=== PATIENT | female | born 1985 | race Caucasian/White ===

== ENCOUNTER → 2017-09-08 15:35 | Outpatient (REF) | payer MEDICAID, SELFPAY ==
[2017-09-08 18:45] LABS: Basophils % 0.5 % (0.1-2.0); Eosinophils # 0.1 K/mm3 (0.0-0.4); Eosinophils % 1.1 % (0.1-12.0); Hematocrit 42.2 % (37.0-47.0); Hemoglobin 13.6 g/dL (12.2-16.2); Lymphocytes # 2.6 K/mm3 (0.7-4.5); Lymphocytes % 40.1 K/mm3 (10-50); Mean Corpuscular HGB Conc 32.3 g/dL (31.8-35.4); Mean Corpuscular Hemoglobin 29.5 pg (27.0-31.2); Mean Corpuscular Volume 91.4 fl (81-99); Mean Platelet Volume 7.8 fl (7.4-10.4); Monocytes # 0.3 K/mm3 (0.1-1.0); Monocytes % 4.4 % (1.7-9.3); Neutrophils # 3.5 K/mm3 (1.8-7.8); Neutrophils % 53.8 % (37.0-80.0); Platelet Count 317 K/mm3 (142-424); Red Blood Count 4.62 M/mm3 (4.20-5.40); Red Cell Distribution Width 12.1 % (11.5-17.5); White Blood Count 6.5 K/mm3 (4.8-10.8)
[2017-09-08 19:27] LABS: Alanine Aminotransferase 20 U/L (12-78); Albumin Level 4.4 gm/dL (3.4-5.0); Albumin/Globulin Ratio 1.3 (1.1-1.8); Alkaline Phosphatase 59 U/L (46-116); Anion Gap 14.8 mEq/L (5-15); Aspartate Amino Transferase 15 U/L (15-37); Bilirubin,Total 0.3 mg/dL (0.2-1.0); Blood Urea Nitrogen 9 mg/dL (7-18); Calcium 9.2 mg/dL (8.5-10.1); Carbon Dioxide 26 mmol/L (21.0-32.0); Chloride 103 mmol/L (98-107); Chol/HDL Ratio 3.6 (1-3.5); Cholesterol 212 mg/dL (140-200); Estimated Glomerular Filt Rate 85 ml/min (>60); Free T4 (Free Thyroxine) 1.07 ng/dl (0.76-1.46); GFR (African American) 103 ML/MIN (>60); Globulin 3.3 gm/dl (1.3-3.2); Glucose 96 mg/dL (74-106); HDL Cholesterol 59 mg/dL (29-89); LDL Cholesterol 138 mg/dL (0-130); Potassium 3.8 mmoL/L (3.5-5.1); Sodium 140 mmol/L (136-145); Thyroid Stimulating Hormone 2.68 uIU/ml (0.358-3.740); Total Protein,Serum 7.7 gm/dL (6.4-8.2); Triglycerides 75 mg/dL (30-200); VLDL Cholesterol 15 mg/dL (0-40)
[2017-09-08 19:31] LABS: Erythrocyte Sedimentation Rate 7 mm/hr (0-20)
[2017-09-08 20:02] LABS: Hemoglobin A1C 5.1 % (0.0-7.0)
[2017-09-10 18:29] LABS: RA Latex Turbid. <10.0 IU/mL (0.0-13.9); Vitamin D 25 Hydroxy 17.9 ng/mL (30.0-100.0)
[2017-09-12 11:14] LABS: Anti-Jo-1 <0.2 AI (0.0-0.9); Anti-Smith Antibody <0.2 AI (0.0-0.9); Antichromatin Antibodies 0.2 AI (0.0-0.9); Antiscleroderma-70 Antibodies <0.2 AI (0.0-0.9); RNP Antibodies <0.2 AI (0.0-0.9); Sjogren's Anti-SS-A <0.2 AI (0.0-0.9); Sjogren's Anti-SS-B <0.2 AI (0.0-0.9)
[2017-09-12 18:08] LABS: Anti-Cyclic Citrullinated Pept 4 units (0-19)
[2017-09-12 18:09] LABS: Anti-Centromere B Antibodies <0.2 AI (0.0-0.9); Anti-DNA (DS) Ab Qn <1 IU/mL (0-9)
== END ==
LOC: LAB 15:35
PROVIDERS: Visit Provider Nurse Practitioner Family
DX: M79.1 Myalgia (principal); R53.83 Other fatigue; Z79.899 Other long term (current) drug therapy
CPT/HCPCS: 80053; 80061; 82652; 83036; 84439; 84443; 85025; 85651; 86038; 86431

== ENCOUNTER 2017-10-25 13:30 | Outpatient (RCR) | payer MEDICAID, SELFPAY ==
--- NOTE | 2017-09-15 09:09 | HMH.PTOPEV ---
Rehab Outpatient Evaluation Rehab OP Evaluation Start: 09/15/17 08:42 Freq: Status: Active Protocol: Document 09/15/17 08:44 PHORNE (Rec: 09/15/17 09:09 PHORNE [id number]) Electronically Signed By Benson Cortes, PT 09/15/17 08:44 Outpatient Therapy Subjective History Subjective History Pt presents with c/o pain in the right shld area intermittently moving through the right UE to the forearm distally x ~ 8 yrs with insidious onset of symptoms. Pt states, I was watching a video on my computer and I just sat wrong I guess and it has hurt ever since. Pt reports no c/o numbness or tingling, but does have frequent headaches. She reports hx of migraine JOHNSON and familial hx of fibromyalgia. Pt also presents with baseline hyperflexibility in all joints with obvious ligamentous laxity. Chief Complaint Pain Symptom Type Ache Sharp Dull Symptoms Relieved By Rest/Positioning Symptoms Aggravated By Lifting Prior Functional Limitations None Current Functional Limitations Reaching Lifting Sleeping Symptom Description Intermittent Level of pain today (0-10) 3 Pain scale - at its worst (0-10) 7 Cervical Eval Flexibility Deficits Upper Trapezius Muscle Length (R) Mild Tightness Levaetor Scapulae Muscle Length (R) Mild Tightness Passive Joint Mobility Cervical PIVM WNL: R OA L OA R AA L AA R C2/3 L C2/3 R C3/4 L C3/4 R C4/5 L C4/5 R C5/6 L C5/6 R C6/7 L C6/7 R C7/T1 L C7/T1 MMT Bilateral Deltoid (C5) 5 Normal Biceps Brachii Strength Grade
== END 2017-10-25 13:31 | disposition home or self-care (01) ==
LOC: PT 13:30
PROVIDERS: PCP Nurse Practitioner Family; Visit Provider Nurse Practitioner Family
DX: M79.1 Myalgia (principal)
CPT/HCPCS: 97010; 97014; 97035; 97110; 97140; G0283

== ENCOUNTER → 2019-04-06 14:54 | Outpatient (CLI) | payer MEDICAID, SELFPAY ==
--- NOTE | 2019-04-06 14:56 | CT_ITS ---
PROCEDURE: CT SINUS WO CON CLINICAL HISTORY: Sinusitis Frequent sinus infections, frontal sinus pain, headache COMPARISON: No exams were available for comparison TECHNIQUE: Axial images obtained with sagittal and coronal reformats. All CT scans at the facility use one or more dose reduction, viz: automated exposure control, ma/kV adjustment per patient size (including targeted exams where dose is matched to indication, i.e. head), or iterative reconstruction technique. FINDINGS: No significant mucosal thickening or sinus air-fluid level. There is moderate leftward nasal septal deviation anteriorly causing narrowing of the left nasal canal. There are scattered small nodes in the neck. The visualized parotid glands have an unremarkable appearance. The orbits appear unremarkable. Unremarkable TMJs.. No mastoid effusion IMPRESSION: Leftward nasal septal deviation otherwise negative CT sinuses Dictated by: Jovon Mcdonald MD 04/06/2019 16:20 Signed by: <Electronically signed by Jovon Mcdonald MD in [facility]> 04/06/2019 16:20
== END ==
PROVIDERS: PCP Nurse Practitioner Family; Visit Provider Otolaryngology
DX: J32.9 Chronic sinusitis, unspecified (principal)
CPT/HCPCS: 70486

== ENCOUNTER → 2019-08-31 12:17 | Outpatient (CLI) | payer MEDICAID, SELFPAY ==
--- NOTE | 2019-08-31 12:19 | CA_ITS ---
APPROVED REPORT EXAM: Comprehensive 2D, Doppler, and color-flow Echocardiogram Bulk Fluids Handler: Nita Poe CRT Ht: 5 ft 4 in Wt: 174lbs BSA: 1.84 BP: 158/103 mmHg Indications: Chest Pain, Arrhythmia, Hypertension/HDD 2D Dimensions LVOT 2.20 cm (M/F) 1.5-2.5 M-Mode Dimensions RVDd 3.50 cm (0.9-2.6) LVDd 4.64 cm (3.5-5.7) LVDs 3.43 cm (3.5-5.7) IVSd 0.82 cm (0.6-1.1) PWd 0.68 cm (0.6-1.1) EF (Teich) 51.20% FS 26.10% EDV (Teich) 99.30 mL ESV (Teich) 48.50 mL LV Diastology E/A Ratio 0.82 Mitral Valve MV A Velocity 63.00 (40-130 cm/s) Left Ventricle Left atrium is normal size, left ventricle is normal size, left ventricle wall thickness is upper limit of the normal, there is preserved left ventricular systolic function, visually estimated ejection fraction 55% with no regional wall motion abnormality, grade 1 diastolic dysfunction seen without tissue Doppler evidence of raise left atrial pressure. Right Ventricle Right atrium and right ventricular normal size and contractility. Aortic Valve Aortic valve is minimally thickened and fibrosed, there is no aortic stenosis aortic insufficiency. Mitral Valve Mitral valve is grossly normal, there is mild mitral regurgitation. Tricuspid Valve Tricuspid valve is grossly normal, there is mild tricuspid regurgitation. Tricuspid addition to close is inadequate for calculation of the right ventricular systolic pressure. Pulmonic Valve Pulmonic valve is poorly visualized. Great Vessels Aortic root is normal size. Pericardium No significant pericardial effusion noted. Conclusion 1. Normal left ventricular size, preserved left ventricular systolic function, visually estimated ejection fraction 55% with no regional wall motion abnormality. Grade 1 diastolic dysfunction seen without tissue Doppler evidence of raise left atrial pressure. 2. Mild mitral and tricuspid regurgitation. 3. No significant pericardial effusion noted. Electronically signed by : Miguel A Villaseñor, 08/31/2019 19:54:01
[2019-08-31 14:06] LABS: Basophils % 0.5 % (0.1-2.0); Eosinophils # 0.1 K/mm3 (0.0-0.4); Hematocrit 41.9 % (37.0-47.0); Hemoglobin 13.5 g/dL (12.2-16.2); Lymphocytes # 2.6 K/mm3 (0.7-4.5); Lymphocytes % 28.9 % (10-50); Mean Corpuscular HGB Conc 32.3 g/dL (31.8-35.4); Mean Corpuscular Hemoglobin 29.1 pg (27.0-31.2); Mean Corpuscular Volume 90.2 fl (81-99); Mean Platelet Volume 7.6 fl (7.4-10.4); Monocytes # 0.3 K/mm3 (0.1-1.0); Monocytes % 3.5 % (1.7-9.3); Neutrophils # 5.9 K/mm3 (1.8-7.8); Neutrophils % 66.1 % (37.0-80.0); Platelet Count 447 K/mm3 (142-424); Red Blood Count 4.65 M/mm3 (4.20-5.40); Red Cell Distribution Width 12.5 % (11.5-17.5); White Blood Count 8.9 K/mm3 (4.8-10.8)
[2019-08-31 15:44] LABS: Alanine Aminotransferase 15 U/L (12-78); Albumin Level 3.8 gm/dL (3.4-5.0); Albumin/Globulin Ratio 1.2 (1.1-1.8); Alkaline Phosphatase 86 U/L (46-116); Anion Gap 13.1 mEq/L (5-15); Aspartate Amino Transferase 11 U/L (15-37); Bilirubin,Total 0.3 mg/dL (0.2-1.0); Blood Urea Nitrogen 8 mg/dL (7-18); CKMB Relative Index 0.8 U/L (0-4.0); Calcium 9.5 mg/dL (8.5-10.1); Carbon Dioxide 26 mmol/L (21.0-32.0); Chloride 101 mmol/L (98-107); Chol/HDL Ratio 4.5 (1-3.5); Cholesterol 232 mg/dL (140-200); Creatine Kinase 63 U/L (26-192); Creatine Kinase MB < 0.5 ng/ml (0.0-3.6); Estimated Glomerular Filt Rate 84 ml/min (>60); GFR (African American) 101 ML/MIN (>60); Globulin 3.3 gm/dl (1.3-3.2); Glucose 92 mg/dL (74-106); HDL Cholesterol 52 mg/dL (29-89); LDL Cholesterol 146 mg/dL (0-130); Potassium 4.1 mmoL/L (3.5-5.1); Sodium 136 mmol/L (136-145); T4 (Thyroxine) 12.3 ug/dl (4.7-13.3); Thyroid Stimulating Hormone 3.31 uIU/ml (0.358-3.740); Total Protein,Serum 7.1 gm/dL (6.4-8.2); Triglycerides 170 mg/dL (30-200); Troponin I < 0.02 ng/ml (0.00-0.06); VLDL Cholesterol 34 mg/dL (0-40)
[2019-09-01 11:06] LABS: Vitamin D 25 Hydroxy 34.2 ng/mL (30.0-100.0)
== END ==
PROVIDERS: PCP Nurse Practitioner Family; Visit Provider Physician Assistant
DX: F32.9 Major depressive disorder, single episode, unspecified (principal); F41.9 Anxiety disorder, unspecified; R00.0 Tachycardia, unspecified; R07.9 Chest pain, unspecified; R53.83 Other fatigue; R51 Headache
CPT/HCPCS: 36415; 80053; 80061; 82550; 82553; 82652; 84436; 84443; 84484; 85025; 93306

== ENCOUNTER → 2019-09-07 11:29 | Outpatient (CLI) | payer MEDICAID, SELFPAY ==
[2019-09-07 13:08] LABS: Anion Gap 11.5 mEq/L (5-15); Blood Urea Nitrogen 8 mg/dL (7-18); Calcium 9.1 mg/dL (8.5-10.1); Carbon Dioxide 28 mmol/L (21.0-32.0); Chloride 92 mmol/L (98-107); Creatinine,Serum 0.85 mg/dL (0.55-1.02); Estimated Glomerular Filt Rate 78 ml/min (>60); GFR (African American) 94 ML/MIN (>60); Glucose 96 mg/dL (74-106); Potassium 3.5 mmoL/L (3.5-5.1); Sodium 128 mmol/L (136-145)
== END ==
PROVIDERS: Visit Provider Physician Assistant
DX: R07.9 Chest pain, unspecified (principal); R00.0 Tachycardia, unspecified; F32.9 Major depressive disorder, single episode, unspecified; F41.9 Anxiety disorder, unspecified; R53.83 Other fatigue
CPT/HCPCS: 36415; 80048

== ENCOUNTER → 2019-09-19 11:49 | Outpatient (CLI) | payer MEDICAID, SELFPAY ==
[2019-09-19 14:02] LABS: Anion Gap 13.3 mEq/L (5-15); Blood Urea Nitrogen 8 mg/dL (7-18); Calcium 9.5 mg/dL (8.5-10.1); Carbon Dioxide 27 mmol/L (21.0-32.0); Chloride 102 mmol/L (98-107); Creatinine,Serum 0.82 mg/dL (0.55-1.02); Estimated Glomerular Filt Rate 81 ml/min (>60); GFR (African American) 98 ML/MIN (>60); Glucose 91 mg/dL (74-106); Potassium 4.3 mmoL/L (3.5-5.1); Sodium 138 mmol/L (136-145)
== END ==
PROVIDERS: Visit Provider Physician Assistant
DX: E87.1 Hypo-osmolality and hyponatremia (principal)
CPT/HCPCS: 36415; 80048

== ENCOUNTER 2020-12-22 17:17 | Emergency (ER) | payer MEDICAID, SELFPAY ==
[2020-12-22 17:53] VITALS: BP 138/90; PULSE 89; RESP 19; TEMP 36.9; O2SAT 97; BMI 31.7
--- NOTE | 2020-12-22 17:59 | XR_ITS ---
PROCEDURE INFORMATION: Exam: XR Left Foot Exam date and time: 12/22/2020 5:59 PM Age: 35 years old Clinical indication: Pain; Toes; Left; Additional info: Injured 5th toe TECHNIQUE: Imaging protocol: XR Left foot. Views: 3 or more views. COMPARISON: No relevant prior studies available. FINDINGS: Bones/joints: Comminuted fracture extending throughout the diaphysis and distal metaphysis of the little toe proximal phalanx. Normal anatomic alignment. No other acutely displaced fractures are identified. There is no evidence of dislocation. No aggressive osseous lesions. Soft tissues: Soft tissue swelling at the little toe. IMPRESSION: 1. Comminuted fracture of the little toe proximal phalanx, as detailed above. 2. Soft tissue swelling at the little toe.
--- NOTE | 2020-12-22 18:09 | HMH.EDUTC ---
[facility] [place] Clinical Impression: Fracture Disposition: Home, Self-Care Condition on Discharge: Good Instructions: DI for Toe Fracture Additional Instructions: ice rest elevated follow up with dr murguia call tomorrow for appointment tylenol or motrin as needed if worsen or no improvement return Referrals: Vaughn Sunshine APRN [Primary Care Provider] - Ayesha Murguia DPM [Staff Physician] - Time of Disposition: 18:34 Medical Decision Making - Malick Inquiry Pt receiving controlled substance: No Vital Signs: 12/22/20 17:53 Temperature 98.4 F Temperature Source Oral Pulse Rate [Right Brachial] 89 Respiratory Rate 19 Blood Pressure [Right Arm] 138/90 Blood Pressure Mean [Right Arm] 106 Blood Pressure Source [Right Arm] Automatic Cuff Blood Pressure Position [Right Arm] Sitting 02 Sat by Pulse Oximetry 97 Orders (Tests/Meds): ORDERS Category Date Time Status XR foot LT min 3V Stat Exams 12/22/20 17:59 Taken [facility] [place] - General Chief complaint: Urgent [facility] Stated complaint: AO trip 1400 injured L pinky toe Time Seen by Provider: 12/22/20 18:09 Mode of Arrival: Family Vehicle Description of Symptoms (Recalled from Triage Doc. by RN): PT STATES THAT SHE TRIPPED OVER A SPACE HEATER AT HOME AND INJURED 5TH TOE ON HRT LEFT FOOT AT 1500 TODAY HEENT Symptoms (Recalled from RN notes): No Resp Symptoms (Recalled from RN notes): No Skin Symptoms (Recalled from RN notes): No MS Symptoms (Recalled from RN notes): Yes Functional Status (Recalled from RN notes): WNL - History of Present Illness Provider Complaint: 35 yr old female presents for left toe pain. pt states she tripped over a space heater stumping her toe at 3 pm today and since then having pain. - Related Data Previous Rx's Medication Instructions Recorded fluticasone propionate 50 1 spray INTRANASAL DAILY #9.9 g 04/12/19 mcg/actuation nasal spray,suspension loratadine 10 mg tablet 10 mg PO DAILY #30 tab 04/12/19 lisinopril 10 mg tablet 10 mg PO DAILY #90 tab 01/15/20 norgestrel 0.3 mg-ethinyl See Rx Instructions .ROUTE 10/27/20 estradiol 30 mcg tablet .COMPLEX #28 tab meclizine 25 mg tablet 25 mg PO BID PRN 3 Days #6 tab 12/09/20 prednisone 10 mg tablet 10 mg PO BID #6 tab 12/22/20 prednisone 20 mg tablet 20 mg PO BID 3 Days #6 tab 12/22/20 Allergies Allergy/AdvReac Type Severity Reaction Status Date / Time penicillin G Allergy Hives Verified 12/09/20 13:28 - Worker's Comp Is this a Worker's Comp case?: No [facility] History - Hepatitis A Screen Drug use history?: No High risk sexual behaviors?: No History of sexually transmitted infection?: No Currently employed?: No Childcare worker?: No Do you have indoor plumbing?: No Do you have electricity?: No Attestation statement:: This patient has been screened for Hepatitis A risk factors. I have reviewed the patient's past medical history: Yes Medical History: Reports:: Anxiety, Depression, Hypertension, Migraine Other Medical History: Reports: Fibromyalgia, Sinus Problems, Other Comment: Gastritis in High School, Chronic Rhinoitis Other Surgeries: Yes: No Previous Surgery, Other Amputation: No Fractures: No Comment: Endostomy, S[place] teeth removed - Social History Smoking Status: Never smoker Alcohol Intake: never Alcohol Intake Frequency:: holidays/special occasions only Substance Use Type: denies use Occupational Status: employed Housing: house Household Members: spouse - Psychiatric History Pschychiatric History:: Reports:: Anxiety, Depression Family Hx:: Thyroid Disorder, Hypertension, Coronary Artery Disease Comment: Mother-Pacemaker@40s ROS Obtained: Yes Systems reviewed as appropriate & no additional complaints - Constitutional Constitutional: Reports system reviewed and no additional complaints, except as docu, Denies fever(s) - Eyes Eyes: Reports system reviewed and no additional complaints, except as docu, Denies blurry vision -
[2020-12-22 18:36] VITALS: BP 138/90; PULSE 89; RESP 19; TEMP 36.9; O2SAT 97
== END 2020-12-22 18:39 | disposition home or self-care (01) ==
PROVIDERS: Emergency Provider Nurse Practitioner Family; PCP Nurse Practitioner Family
DX: S92.515A Nondisplaced fracture of proximal phalanx of left lesser toe(s), initial encounter for closed fracture (principal); W01.0XXA Fall on same level from slipping, tripping and stumbling without subsequent striking against object, initial encounter; Y92.019 Unspecified place in single-family (private) house as the place of occurrence of the external cause; F41.8 Other specified anxiety disorders; I10 Essential (primary) hypertension; M79.7 Fibromyalgia
CPT/HCPCS: 73630; 99202; G0463

== ENCOUNTER → 2021-01-19 14:26 | Outpatient (CLI) | payer MEDICAID, SELFPAY ==
--- NOTE | 2021-01-19 14:31 | XR_ITS ---
PROCEDURE: XR FOOT WT BEARING LT 3V CLINICAL INDICATION: fracture follow up COMPARISON: CR XR FOOT LT MIN 3V from 12/22/2020 FINDINGS: No change in the nondisplaced oblique fracture involving the midshaft the proximal phalanx of the 5th toe. No other significant anomalies apparent. Other findings:None. IMPRESSION: No change nondisplaced oblique fracture midshaft proximal phalanx 5th toe Dictated by: Jovon Mcdonald MD 01/19/2021 15:01 Jovon Mcdonald MD in [facility] 01/19/2021 15:01
== END ==
PROVIDERS: PCP Emergency Medicine; Visit Provider Nurse Practitioner
DX: T14.8XXA Other injury of unspecified body region, initial encounter (principal)
CPT/HCPCS: 73630

== ENCOUNTER 2022-03-07 04:21 | Emergency (ER) | payer MEDICAID, SELFPAY ==
[2022-03-07] VITALS (8 sets, daily range): BP systolic 105–129; BP diastolic 51–77; PULSE 68–113; RESP 18; TEMP 37.3; O2SAT 96–99; BMI 34.4
[2022-03-07 04:46] LABS: Microscopic, Urine URINE MICROSCOPIC (MICROSCOPIC)
[2022-03-07 04:53] LABS: Appearance,Urine SL CLOUDY (Clear); Bilirubin,Urine Negative (Negative); Blood, Urine 2+ (Negative); Color,Urine YELLOW (Yellow); Glucose,Urine (UA) Negative (Negative); Ketones,Urine Negative (Negative); Leukocyte Esterase,Urine TRACE (Negative); Nitrate,Urine Negative (Negative); Protein,Urine Negative (Negative); Urobilinogen,Urine 0.2 EU/dl (0.2)
[2022-03-07 04:57] LABS: Amorphous Sediment,Urine 2+ /lpf; Bacteria,Urine Trace /lpf; Squamous Epithelial Cell,Urine Occasional #/hpf (0-5); Urine Pregnancy, HCG Qual. Negative (Negative); WBC,Urine Occasional #/hpf (0-3)
--- NOTE | 2022-03-07 04:59 | XR_ITS ---
PROCEDURE INFORMATION: Exam: XR Chest Exam date and time: 03/07/2022 5:10 AM Age: 36 years old Clinical indication: Shortness of breath TECHNIQUE: Imaging protocol: Radiologic exam of the chest. Views: 2 views. COMPARISON: No relevant prior studies available. FINDINGS: Lungs: Linear atelectasis versus scar right lung base. Remainder of the lungs are clear. Pleural spaces: Unremarkable. No pleural effusion. No pneumothorax. Heart/Mediastinum: Unremarkable. No cardiomegaly. Diaphragm: There is nonspecific elevation of the right hemidiaphragm. Bones/joints: There is a mild scoliosis. IMPRESSION: Linear atelectasis versus scar right lung base.
[2022-03-07 05:14] LABS: Coronavirus 19, PCR Not Detected (NotDetected); Influenza A, PCR Not Detected (NotDetected); Influenza B, PCR Not Detected (NotDetected)
[2022-03-07 05:26] LABS: Basophils # 0.1 K/mm3 (0-0.2); Basophils % 0.5 % (0.1-2.0); Eosinophils # 0.3 K/mm3 (0.0-0.4); Eosinophils % 1.4 % (0.1-12.0); Hematocrit 42.3 % (37.0-47.0); Hemoglobin 14.2 g/dL (12.2-16.2); Lymphocytes # 8.8 K/mm3 (0.7-4.5); Lymphocytes % 42.9 % (10-50); Mean Corpuscular HGB Conc 33.5 g/dL (31.8-35.4); Mean Corpuscular Hemoglobin 28.9 pg (27.0-31.2); Mean Corpuscular Volume 86.2 fl (81-99); Mean Platelet Volume 6.6 fl (7.4-10.4); Monocytes # 0.9 K/mm3 (0.1-1.0); Monocytes % 4.2 % (1.7-9.3); Neutrophils # 10.4 K/mm3 (1.8-7.8); Platelet Count 474 K/mm3 (142-424); Red Blood Count 4.91 M/mm3 (4.20-5.40); Red Cell Distribution Width 13.1 % (11.5-17.5)
[2022-03-07 05:33] LABS: White Blood Count 20.4 K/mm3 (4.8-10.8)
[2022-03-07 05:34] LABS: MANUAL DIFFERENTIAL MANUAL DIFFERENTIAL (MANUAL DIFF)
--- NOTE | 2022-03-07 05:34 | HMH.EDWEAK ---
ED Disposition Clinical Impression: Anxiety Leukocytosis (leucocytosis) Qualifiers: Leukocytosis type: unspecified Qualified Code(s): D72.829 - Elevated white blood cell count, unspecified Disposition: Home, Self-Care Condition on Discharge: Good Instructions: DI for Anxiety -- Adult Additional Instructions: use meds and see pcp for follow up Referrals: Lan Ortiz MD [Primary Care Provider] - - Critical Care Critical Care Time: No Attestation: On 03/07/22, the high probability of a clinically significant, sudden or life threatening deterioration of the following system(s) required my full and direct attention, intervention and personal management. The time I documented below is in addition to time spent performing reported procedures but includes the following listed in this critical care notation. Medical Decision Making - Medical Records Medical records reviewed: Yes: I reviewed the patient's medical records. - Malick Inquiry Pt receiving controlled substance: No Vital Signs: 03/07/22 04:45 03/07/22 05:22 03/07/22 05:30 Temperature 99.2 F Temperature Source Oral Pulse Rate 72 Pulse Rate [Right Brachial] 113 H Respiratory Rate 18 Blood Pressure 105/71 L 112/75 Blood Pressure [Right Arm] 129/51 L Blood Pressure Mean 82 89 Blood Pressure Mean [Right Arm] 77 Blood Pressure Source [Right Arm] Automatic Cuff Blood Pressure Position [Right Arm] Sitting 02 Sat by Pulse Oximetry 96 Oxygen Delivery Method Room Air 03/07/22 06:00 Temperature Temperature Source Pulse Rate 68 Pulse Rate [Right Brachial] Respiratory Rate Blood Pressure 121/75 Blood Pressure [Right Arm] Blood Pressure Mean 86 Blood Pressure Mean [Right Arm] Blood Pressure Source [Right Arm] Blood Pressure Position [Right Arm] 02 Sat by Pulse Oximetry 99 Oxygen Delivery Method - Lab Data Lab results reviewed: Yes: I reviewed the patient's lab results. Lab Results 03/07/22 04:39: Urine HCG, Qual Negative 03/07/22 04:39: Urine Color Yellow, Urine Appearance Sl cloudy, Urine pH 6.0, Ur Specific [place] 1.020, Urine Protein Negative, Urine Glucose (UA) Negative, Urine Ketones Negative, Urine Blood 2+, Urine Nitrate Negative, Urine Bilirubin Negative, Urine Urobilinogen 0.2, Ur Leukocyte Esterase Trace, Urine RBC 5-10, Urine WBC Occasional, Ur Squamous Epith Cells Occasional, Amorphous Sediment 2+, Urine Bacteria Trace 03/07/22 04:59: SARS-CoV-2 (PCR) Not detected, Influenza A Untype (PCR) Not detected, Influenza Type B (PCR) Not detected 03/07/22 05:05: Procalcitonin 0.033 03/07/22 05:10: WBC 20.4 H*, RBC 4.91, Hgb 14.2, Hct 42.3, MCV 86.2, MCH 28.9, MCHC 33.5, RDW 13.1, Plt Count 474 H, MPV 6.6 L, Neut % (Auto) 51.0, Lymph % (Auto) 42.9, [place] % (Auto) 4.2, Eos % (Auto) 1.4, Baso % (Auto) 0.5, Neut # (Auto) 10.4 H, Lymph # (Auto) 8.8 H, [place] # (Auto) 0.9, Eos # (Auto) 0.3, Baso # (Auto) 0.1, Total Counted 100, Neutrophils % (Manual) 59, Band Neutrophils % 1.0, Lymphocytes % (Manual) 40, Platelet Estimate Normal, RBC Morphology Normal, ESR 7 03/07/22 05:10: Sodium 131 L, Potassium 4.6, Chloride 105, Carbon Dioxide 19 L, Anion Gap 11.6, BUN 14, Creatinine 1.00, Estimated Creat Clear 114, Estimated GFR 63, Est GFR ( Amer) 77, Glucose 106 H, Calcium 9.0, Total Bilirubin 0.2, AST 29, ALT 25, Alkaline Phosphatase 83, C-Reactive Protein 4.7 H, Total Protein 6.3, Albumin 3.6, Globulin 2.7, Albumin/Globulin Ratio 1.3 03/07/22 05:10: Lactate 2.1 Result diagrams: 03/07/22 05:10 03/07/22 05:10 Orders (Tests/Meds): ED MEDICATIONS Generic Name Dose Route Start Last Admin Trade Name Freq PRN Reason Stop Dose Admin Sodium Chloride 10 ml 03/07/22 05:00 Sodium Chloride 0.9% 10ml Flush Syringe IV 04/06/22 04:59 NEEDED PRN Maintain IV Site Discontinued Medications Generic Name Dose Route Start Last Admin Trade Name Freq PRN Reason Stop Dose Admin Sodium Chloride 1,000 mls @ 999
[2022-03-07 05:35] LABS: Lymphocytes % 40 % (10-50); Neutrophils % 59 % (42-76); Platelet Estimate Normal; RBC Morphology Normal; Total Cells Counted 100
[2022-03-07 05:37] LABS: Alanine Aminotransferase 25 U/L (12-78); Albumin Level 3.6 g/dl (3.5-5.0); Albumin/Globulin Ratio 1.3 (1.1-1.8); Alkaline Phosphatase 83 U/L (38-126); Anion Gap 11.6 mEq/L (5-15); Aspartate Amino Transferase 29 U/L (14-36); Bilirubin,Total 0.2 mg/dl (0.2-1.3); Blood Urea Nitrogen 14 mg/dl (7-17); Carbon Dioxide 19 mmol/L (22.0-30.0); Chloride 105 mmol/L (98-107); Creatinine Clearance Estimated 114 mL/min (50-200); Estimated Glomerular Filt Rate 63 ml/min (>60); GFR (African American) 77 ML/MIN (>60); Globulin 2.7 g/dL (1.3-3.2); Glucose 106 mg/dl (74-100); Lactic Acid 2.1 mmol/L (0.7-2.1); Potassium 4.6 mmoL/L (3.5-5.1); Sodium 131 mmol/L (136-145); Total Protein,Serum 6.3 g/dl (6.3-8.2)
[2022-03-07 05:42] LABS: C-Reactive Protein 4.7 mg/L (0-4)
[2022-03-07 05:54] LABS: Erythrocyte Sedimentation Rate 7 mm/hr (0-20)
[2022-03-07 05:56] LABS: Procalcitonin 0.033 ng/mL (0.0-2.0)
[2022-03-07 09:21] LABS: Reflex Lactic Add Lactic Reflex
== END 2022-03-07 07:42 | disposition home or self-care (01) ==
PROVIDERS: Emergency Provider Emergency Medicine; PCP Emergency Medicine
DX: F41.9 Anxiety disorder, unspecified (principal); D72.829 Elevated white blood cell count, unspecified; Z79.890 Hormone replacement therapy; Z79.51 Long term (current) use of inhaled steroids; Z79.899 Other long term (current) drug therapy; J45.909 Unspecified asthma, uncomplicated; F32.A Depression, unspecified; I10 Essential (primary) hypertension; G43.909 Migraine, unspecified, not intractable, without status migrainosus; E07.9 Disorder of thyroid, unspecified; M79.7 Fibromyalgia; Z82.49 Family history of ischemic heart disease and other diseases of the circulatory system
CPT/HCPCS: 71046; 80053; 81001; 81025; 83605; 84145; 85007; 85025; 85651; 86140; 87040; 96365; 96375; 99284; C9803; J2405; U0003; U0005

== ENCOUNTER 2022-03-18 21:03 | Emergency (ER) | payer MEDICAID, SELFPAY ==
[2022-03-18 21:16] VITALS: BP 153/101; PULSE 121; RESP 21; TEMP 37; O2SAT 96; BMI 40.8
--- NOTE | 2022-03-18 21:28 | HMH.EDGENADL ---
ED Disposition Clinical Impression: Vertigo Disposition: Home, Self-Care Condition on Discharge: Fair Instructions: Vertigo Prescriptions: Meclizine HCl [Meclizine 25mg Tab] 25 mg PO QID PRN #30 tab PRN Reason: Dizziness Transmission Status: Pending to [id number] Referrals: Lan Ortiz MD [Primary Care Provider] - - Critical Care Critical Care Time: No Attestation: On 03/18/22, the high probability of a clinically significant, sudden or life threatening deterioration of the following system(s) required my full and direct attention, intervention and personal management. The time I documented below is in addition to time spent performing reported procedures but includes the following listed in this critical care notation. Medical Decision Making - Malick Inquiry Pt receiving controlled substance: Yes Malick was queried for this patient: No Risks and benefits of using a controlled substance: were discussed with pt by me Vital Signs: 03/18/22 21:16 03/18/22 21:30 03/18/22 22:00 Temperature 98.6 F Temperature Source Oral Pulse Rate 116 H 102 H Pulse Rate [Right Brachial] 121 H Respiratory Rate 21 Blood Pressure 136/98 H 137/107 H Blood Pressure [Right Arm] 153/101 H Blood Pressure Mean Blood Pressure Mean [Right Arm] 118 Blood Pressure Source [Right Arm] Automatic Cuff Blood Pressure Position [Right Arm] Sitting 02 Sat by Pulse Oximetry 96 97 96 Oxygen Delivery Method Room Air Room Air Room Air 03/18/22 22:30 03/18/22 23:00 03/18/22 23:30 Temperature Temperature Source Pulse Rate 104 H 109 H 95 H Pulse Rate [Right Brachial] Respiratory Rate Blood Pressure 147/103 H 139/102 H 151/101 H Blood Pressure [Right Arm] Blood Pressure Mean 115 Blood Pressure Mean [Right Arm] Blood Pressure Source [Right Arm] Blood Pressure Position [Right Arm] 02 Sat by Pulse Oximetry 96 96 96 Oxygen Delivery Method Room Air Room Air 03/19/22 00:30 Temperature Temperature Source Pulse Rate 95 H Pulse Rate [Right Brachial] Respiratory Rate Blood Pressure 156/100 H Blood Pressure [Right Arm] Blood Pressure Mean Blood Pressure Mean [Right Arm] Blood Pressure Source [Right Arm] Blood Pressure Position [Right Arm] 02 Sat by Pulse Oximetry 99 Oxygen Delivery Method Room Air - Lab Data Lab results reviewed: Yes: I reviewed the patient's lab results. Lab Results 03/18/22 21:13: SARS-CoV-2 (PCR) Not detected, Influenza A Untype (PCR) Not detected, Influenza Type B (PCR) Not detected 03/18/22 21:20: WBC 14.9 H, RBC 5.15, Hgb 14.9, Hct 46.7, MCV 90.6, MCH 28.8, MCHC 31.8, RDW 13.7, Plt Count 440 H, MPV 7.2 L, Neut % (Auto) 56.7, Lymph % (Auto) 36.1, [place] % (Auto) 4.4, Eos % (Auto) 1.4, Baso % (Auto) 1.4, Neut # (Auto) 8.5 H, Lymph # (Auto) 5.4 H, [place] # (Auto) 0.7, Eos # (Auto) 0.2, Baso # (Auto) 0.2 03/18/22 21:20: Sodium 137, Potassium 3.7, Chloride 104, Carbon Dioxide 25, Anion Gap 11.7, BUN 10, Creatinine 0.90, Estimated Creat Clear 160, Estimated GFR 72, Est GFR ( Amer) 87, Glucose 115 H, Calcium 10.0, Total Bilirubin < 0.1 L, AST 30, ALT 21, Alkaline Phosphatase 124, C-Reactive Protein 8.7 H, Total Protein 7.9 D, Albumin 4.5, Globulin 3.4 H, Albumin/Globulin Ratio 1.3 03/18/22 21:20: Group A Strep Rapid Negative Result diagrams: 03/18/22 21:20 03/18/22 21:20 Orders (Tests/Meds): ED MEDICATIONS Generic Name Dose Route Start Last Admin Trade Name Freq PRN Reason Stop Dose Admin Lactated Ringer's 1,000 mls @ 999 mls/hr 03/18/22 23:45 03/18/22 23:33 Lactated Ringer's 1000 Ml Bag IV 03/19/22 00:45 999 mls/hr .Q1H1M CHANTALE Administration Discontinued Medications Generic Name Dose Route Start Last Admin Trade Name Freq PRN Reason Stop Dose Admin Diazepam 5 mg 03/18/22 21:24 03/18/22 21:26 Diazepam 10mg/2ml Syringe IV 03/18/22 21:25 5 mg ONCE ONE Administration Meclizine HCl 25 mg 03/18/22 21:24 03/18
[2022-03-18 21:30] VITALS: BP 136/98; PULSE 116; O2SAT 97
[2022-03-18 21:35] LABS: Chloride 104 mmol/L (98-107); Potassium 3.7 mmoL/L (3.5-5.1); Sodium 137 mmol/L (136-145)
[2022-03-18 21:37] LABS: Basophils # 0.2 K/mm3 (0-0.2); Basophils % 1.4 % (0.1-2.0); Eosinophils # 0.2 K/mm3 (0.0-0.4); Eosinophils % 1.4 % (0.1-12.0); Hematocrit 46.7 % (37.0-47.0); Hemoglobin 14.9 g/dL (12.2-16.2); Lymphocytes # 5.4 K/mm3 (0.7-4.5); Lymphocytes % 36.1 % (10-50); Mean Corpuscular HGB Conc 31.8 g/dL (31.8-35.4); Mean Corpuscular Hemoglobin 28.8 pg (27.0-31.2); Mean Corpuscular Volume 90.6 fl (81-99); Mean Platelet Volume 7.2 fl (7.4-10.4); Monocytes # 0.7 K/mm3 (0.1-1.0); Monocytes % 4.4 % (1.7-9.3); Neutrophils # 8.5 K/mm3 (1.8-7.8); Neutrophils % 56.7 % (37.0-80.0); Platelet Count 440 K/mm3 (142-424); Red Blood Count 5.15 M/mm3 (4.20-5.40); Red Cell Distribution Width 13.7 % (11.5-17.5); White Blood Count 14.9 K/mm3 (4.8-10.8)
[2022-03-18 21:38] LABS: Alanine Aminotransferase 21 U/L (12-78); Albumin Level 4.5 g/dl (3.5-5.0); Albumin/Globulin Ratio 1.3 (1.1-1.8); Alkaline Phosphatase 124 U/L (38-126); Anion Gap 11.7 mEq/L (5-15); Aspartate Amino Transferase 30 U/L (14-36); Blood Urea Nitrogen 10 mg/dl (7-17); Carbon Dioxide 25 mmol/L (22.0-30.0); Creatinine Clearance Estimated 160 mL/min (50-200); Estimated Glomerular Filt Rate 72 ml/min (>60); GFR (African American) 87 ML/MIN (>60); Globulin 3.4 g/dL (1.3-3.2); Total Protein,Serum 7.9 g/dl (6.3-8.2)
[2022-03-18 21:39] LABS: Glucose 115 mg/dl (74-100)
[2022-03-18 21:40] LABS: Strep Scrn Group A (Rapid) Negative (Negative)
[2022-03-18 21:43] LABS: Bilirubin,Total < 0.1 mg/dl (0.2-1.3); C-Reactive Protein 8.7 mg/L (0-4)
[2022-03-18 22:00] VITALS: BP 137/107; PULSE 102; O2SAT 96
[2022-03-18 22:30] VITALS: BP 147/103; PULSE 104; O2SAT 96
[2022-03-18 22:49] LABS: Coronavirus 19, PCR Not Detected (NotDetected); Influenza A, PCR Not Detected (NotDetected); Influenza B, PCR Not Detected (NotDetected)
[2022-03-18 23:00] VITALS: BP 139/102; PULSE 109; O2SAT 96
--- NOTE | 2022-03-18 23:23 | PC.NURSE ---
Pt advised that she was feeling better. No needs voiced at this time.
[2022-03-18 23:30] VITALS: BP 151/101; PULSE 95; O2SAT 96
[2022-03-19 00:30] VITALS: BP 156/100; PULSE 95; O2SAT 99
--- NOTE | 2022-03-19 00:40 | PC.NURSE ---
Rechecked pt condition. Pt voiced no new needs or complaints.
[2022-03-19 01:21] VITALS: BP 150/97; PULSE 95; RESP 18; TEMP 37; O2SAT 97
== END 2022-03-19 01:23 | disposition home or self-care (01) ==
PROVIDERS: Emergency Provider Student in an Organized Health Care Education/Training Program; PCP Emergency Medicine
DX: R42 Dizziness and giddiness (principal); Z79.3 Long term (current) use of hormonal contraceptives; Z79.51 Long term (current) use of inhaled steroids; Z79.899 Other long term (current) drug therapy; Z88.0 Allergy status to penicillin; I10 Essential (primary) hypertension; G43.909 Migraine, unspecified, not intractable, without status migrainosus; J45.909 Unspecified asthma, uncomplicated; F41.9 Anxiety disorder, unspecified; F32.A Depression, unspecified
CPT/HCPCS: 80053; 85025; 86140; 87430; 96365; 96375; 99284; C9803; U0003; U0005

== ENCOUNTER → 2022-04-09 07:35 | Outpatient (CLI) | payer MEDICAID, SELFPAY ==
--- NOTE | 2022-04-09 07:36 | MR_ITS ---
FINAL REPORT CLINICAL HISTORY: dizziness x's 3 months. pt states she has a family history of ms. FINDINGS: Multiplanar MR imaging of the brain was performed without and with contrast. There is no evidence of intracranial hemorrhage or mass. No abnormal extra-axial fluid collection is seen. The ventricular size is within normal limits. There is no evidence of shift of the midline structures. The posterior fossa and brainstem have an unremarkable appearance. No area of abnormal restricted diffusion is identified. No abnormal contrast enhancement is seen. Normal major vessel vascular flow voids are noted. IMPRESSION: No acute intracranial abnormality identified. Reviewed, Interpreted and Dictated by Donald Menjivar MD Transcribed by Kathy Rao Authenticated and [facility]
== END ==
PROVIDERS: PCP Emergency Medicine; Visit Provider Emergency Medicine
DX: R42 Dizziness and giddiness (principal)
CPT/HCPCS: 70553; A9576

== ENCOUNTER 2022-05-26 18:04 | Emergency (ER) | payer MEDICAID, SELFPAY ==
[2022-05-26 19:05] VITALS: BP 133/92; PULSE 104; RESP 18; TEMP 36.9; O2SAT 96; BMI 34.3
--- NOTE | 2022-05-26 19:12 | EXP.UTC ---
Discharge Plan Disposition Patient Disposition: Home, Self-Care Condition: Good Prescriptions Prescriptions: New azithromycin [Zithromax] 250 mg tablet 250 mg PO UD DOSE PK Qty: 6 0RF Rx Instructions: Take two (2) tablets today, then one (1) tablet days #2 thru #5 benzonatate [benzonatate] 100 mg capsule 100 mg PO TIDP PRN (Reason: Cough) Qty: 30 0RF methylprednisolone 4 mg Tablets,Dose Pack 4 mg PO DIRECTED Qty: 21 0RF No Action albuterol sulfate 90 mcg/actuation HFA aerosol inhaler 1 dose IH DAILY prednisone 10 mg tablet See Rx Instructions .Route .COMPLEX Qty: 9 0RF Rx Instructions: Take 1 tablet twice daily for 3 days, then Take 1 tablet daily for 3 days; loratadine 10 mg tablet 10 mg PO DAILY azelastine 137 mcg (0.1 %) aerosol,spray 1 ml NS BID fluticasone propionate [Flovent HFA] 110 mcg/actuation HFA aerosol inhaler 1 gm IH DAILY Label Comments: INHALE 1 PUFF BY MOUTH TWICE DAILY RINSE MOUTH AFTER USE lisinopril 10 mg tablet 10 mg PO DAILY Qty: 30 0RF escitalopram oxalate 10 mg tablet See Rx Instructions .ROUTE .COMPLEX Qty: 30 0RF Dose Instruction: Take 1 tablet by mouth once daily Rx Instructions: Take 1 tablet by mouth once daily norgestrel-ethinyl estradiol 1 EACH tablet See Rx Instructions .Route .COMPLEX Rx Instructions: Take 1 tablet by mouth once daily fluticasone propionate 9.9 ML spray,suspension 1 spray NS DAILY Rx Instructions: administer into each nostril meclizine 25 MG tablet,chewable 25 mg PO QID PRN (Reason: Dizziness) Qty: 30 0RF Referrals Follow up/Referrals: Lan Ortiz MD [Primary Care Provider] - See instructions Activity Restrictions/Add. Instructions Additional Instructions/Restrictions: Drink plenty of fluids. Take tylenol or ibuprofen for pain or fever. Take the medications as directed. Follow up with your regular doctor. GO TO THE ER FOR ANY WORSENING SYMPTOMS Clinical Impressions Clinical Impression: Acute bronchitis Instructions Patient Instructions: Acute Bronchitis, DI for Acute Bronchitis Discharge ED [place]: [facility] [place] General Stated complaint: congestion,JOHNSON Time Seen by Provider: 05/26/22 19:11 History of Present Illness Provider Complaint: She has had a cough, sinus congestion and a sore throat for the past3 days. Related Data Home Medications Medication Instructions Recorded Confirmed albuterol sulfate 90 mcg/actuation 1 dose inhalation DAILY Asthma 01/19/21 03/30/22 aerosol inhaler azelastine 137 mcg (0.1 %) nasal 1 ml intranasal BID Asthma 02/16/22 03/30/22 spray aerosol fluticasone propionate 110 1 gm inhalation DAILY Asthma 02/16/22 03/30/22 mcg/actuation HFA aerosol inhaler (Flovent HFA) loratadine 10 mg tablet 10 mg PO DAILY Allergy symptoms 02/16/22 03/30/22 fluticasone propionate 50 1 spray intranasal DAILY Asthma 03/07/22 03/30/22 mcg/actuation nasal spray,suspension norgestrel 0.3 mg-ethinyl See Rx Instructions .Route 03/07/22 03/30/22 estradiol 30 mcg tablet .COMPLEX BC Previous Rx's Medication Instructions Recorded meclizine 25 mg chewable tablet 25 mg PO QID PRN Dizziness #30 tabs 03/19/22 prednisone 10 mg tablet See Rx Instructions .Route 03/30/22 .COMPLEX #9 tabs lisinopril 10 mg tablet 10 mg PO DAILY BLOOD PRESSURE #30 04/30/22 tabs escitalopram oxalate 10 mg tablet See Rx Instructions .Route 05/18/22 .COMPLEX #30 tabs azithromycin 250 mg tablet 250 mg PO UD DOSE PK #6 tabs 05/26/22 (Zithromax) benzonatate 100 mg capsule 100 mg PO TIDP PRN Cough #30 caps 05/26/22 methylprednisolone 4 mg tablets in 4 mg PO DIRECTED #21 tabs 05/26/22 a dose pack Allergies Allergy/AdvReac Type Severity Reaction Status Date / Time penicillin G Allergy Hives Verified 03/30/22 11:16 [facility] Medical History (Reviewed 05/26/22 @ 23:44 by Sachin
[2022-05-26 19:52] VITALS: BP 133/92; PULSE 104; RESP 18; TEMP 36.9; O2SAT 96
== END 2022-05-26 20:03 | disposition home or self-care (01) ==
PROVIDERS: Emergency Provider Nurse Practitioner Family; PCP Emergency Medicine
DX: J02.9 Acute pharyngitis, unspecified (principal); R05.9 Cough, unspecified; R42 Dizziness and giddiness; R53.82 Chronic fatigue, unspecified; R09.81 Nasal congestion; G43.909 Migraine, unspecified, not intractable, without status migrainosus; J45.909 Unspecified asthma, uncomplicated; F32.A Depression, unspecified; F41.9 Anxiety disorder, unspecified; Z79.51 Long term (current) use of inhaled steroids; Z79.52 Long term (current) use of systemic steroids; Z79.890 Hormone replacement therapy; Z79.899 Other long term (current) drug therapy; Z88.0 Allergy status to penicillin
CPT/HCPCS: 99213; G0463

== ENCOUNTER 2022-05-31 11:36 | Emergency (ER) | payer MEDICAID, SELFPAY ==
--- NOTE | 2022-05-31 12:11 | EXP.UTC ---
Discharge Plan Disposition Patient Disposition: Home, Self-Care Condition: Good Prescriptions Prescriptions: New promethazine-DM 6.25-15 mg/5 mL Syrup 5 ml PO Q6H PRN (Reason: Cough) Qty: 240 0RF albuterol sulfate [Ventolin HFA] 90 mcg/actuation HFA aerosol inhaler 2 puff inhalation Q6H PRN (Reason: Shortness Of Breath Or Wheezing) Qty: 1 0RF No Action albuterol sulfate 90 mcg/actuation HFA aerosol inhaler 1 dose IH DAILY prednisone 10 mg tablet See Rx Instructions .Route .COMPLEX Qty: 9 0RF Rx Instructions: Take 1 tablet twice daily for 3 days, then Take 1 tablet daily for 3 days; loratadine 10 mg tablet 10 mg PO DAILY azelastine 137 mcg (0.1 %) aerosol,spray 1 ml NS BID fluticasone propionate [Flovent HFA] 110 mcg/actuation HFA aerosol inhaler 1 gm IH DAILY Label Comments: INHALE 1 PUFF BY MOUTH TWICE DAILY RINSE MOUTH AFTER USE lisinopril 10 mg tablet 10 mg PO DAILY Qty: 30 0RF escitalopram oxalate 10 mg tablet See Rx Instructions .ROUTE .COMPLEX Qty: 30 0RF Dose Instruction: Take 1 tablet by mouth once daily Rx Instructions: Take 1 tablet by mouth once daily norgestrel-ethinyl estradiol 1 EACH tablet See Rx Instructions .Route .COMPLEX Rx Instructions: Take 1 tablet by mouth once daily fluticasone propionate 9.9 ML spray,suspension 1 spray NS DAILY Rx Instructions: administer into each nostril meclizine 25 MG tablet,chewable 25 mg PO QID PRN (Reason: Dizziness) Qty: 30 0RF azithromycin [Zithromax] 250 mg tablet 250 mg PO UD DOSE PK Qty: 6 0RF Rx Instructions: Take two (2) tablets today, then one (1) tablet days #2 thru #5 benzonatate [benzonatate] 100 mg capsule 100 mg PO TIDP PRN (Reason: Cough) Qty: 30 0RF methylprednisolone 4 mg Tablets,Dose Pack 4 mg PO DIRECTED Qty: 21 0RF Referrals Follow up/Referrals: Lan Ortiz MD [Primary Care Provider] - See instructions Activity Restrictions/Add. Instructions Additional Instructions/Restrictions: Drink plenty of fluids. Take tylenol or ibuprofen for pain or fever. Take the medications as directed. Follow up with your regular doctor. GO TO THE ER FOR ANY WORSENING SYMPTOMS The cough medication (promethazine dm) will make you drowsy, so don't drive or operate heavy machinery after taking it. Clinical Impressions Clinical Impression: Acute bronchitis Stand Alone Forms Stand Alone Forms: Work/School Release Instructions Patient Instructions: DI for Acute Bronchitis Discharge ED Provider: Hair Shafer [facility] General Stated complaint: Cough,lack of sleep,headache Time Seen by Provider: 05/31/22 12:11 Description of Symptoms (Recalled from Triage Doc. by RN): She states that for the past 1 week she has had a worsening cough and chest congestion. History of Present Illness Provider Complaint: She is back today with continued cough and chest congestion. Related Data Home Medications Medication Instructions Recorded Confirmed albuterol sulfate 90 mcg/actuation 1 dose inhalation DAILY Asthma 01/19/21 03/30/22 aerosol inhaler azelastine 137 mcg (0.1 %) nasal 1 ml intranasal BID Asthma 02/16/22 03/30/22 spray aerosol fluticasone propionate 110 1 gm inhalation DAILY Asthma 02/16/22 03/30/22 mcg/actuation HFA aerosol inhaler (Flovent HFA) loratadine 10 mg tablet 10 mg PO DAILY Allergy symptoms 02/16/22 03/30/22 fluticasone propionate 50 1 spray intranasal DAILY Asthma 03/07/22 03/30/22 mcg/actuation nasal spray,suspension norgestrel 0.3 mg-ethinyl See Rx Instructions .Route 03/07/22 03/30/22 estradiol 30 mcg tablet .COMPLEX BC Previous Rx's Medication Instructions Recorded meclizine 25 mg chewable tablet 25 mg PO QID PRN Dizziness #30 tabs 03/19/22 prednisone 10 mg tablet See Rx Instructions .Route 03/30/22 .COMPLEX #9 tabs lisinopril 10 mg tablet 10 mg PO DA
[2022-05-31 12:13] VITALS: BP 135/89; PULSE 116; RESP 17; TEMP 36.9; O2SAT 96; BMI 34.3
--- NOTE | 2022-05-31 12:33 | XR_ITS ---
FINAL REPORT CLINICAL HISTORY: cough, congestion COMPARISON: March 07, 2022 FINDINGS: Two views of the chest were obtained. The heart size and pulmonary vascularity are within normal limits. The mediastinum is normal. There is mild right lung base atelectasis or scarring. There is no pneumothorax. The bony thorax is intact. IMPRESSION: Mild right lung base atelectasis or scarring. Reviewed, Interpreted and Dictated by Shree Lundy III, MD Transcribed by Gladys Ramos Authenticated and [facility]
[2022-05-31 13:11] VITALS: BP 135/89; PULSE 116; RESP 17; TEMP 36.9
[2022-05-31 13:18] LABS: Adenovirus,PCR Not Detected (NotDetected); Bordetella Pertussis Not Detected (NotDetected); Chlamydophila Pneumoniae, PCR Not Detected (NotDetected); Coronavirus 19, PCR Not Detected (NotDetected); Coronavirus 229E Not Detected (NotDetected); Coronavirus NL63 Not Detected (NotDetected); Coronavirus OC43 Not Detected (NotDetected); Coronovirus HKU1,PCR Not Detected (NotDetected); Human Metapneumovirus Not Detected (NotDetected); Influenza A, PCR Not Detected (NotDetected); Influenza AH1, 2009 Not Detected (NotDetected); Influenza AH1, PCR Not Detected (NotDetected); Influenza AH3,PCR Not Detected (NotDetected); Influenza B, PCR Not Detected (NotDetected); Mycoplasma Pneumoniae, PCR Not Detected (NotDetected); Parainfluenza 1, PCR Not Detected (NotDetected); Parainfluenza 2, PCR Not Detected (NotDetected); Parainfluenza 3, PCR Not Detected (NotDetected); Parainfluenza 4, PCR Not Detected (NotDetected); Rhinovirus/Enterovirus Not Detected (NotDetected)
[2022-05-31 17:16] LABS: Respiratory Syncytial Virus Detected (NotDetected)
== END 2022-05-31 13:14 | disposition home or self-care (01) ==
PROVIDERS: Emergency Provider Nurse Practitioner Family; PCP Emergency Medicine
DX: J20.9 Acute bronchitis, unspecified (principal)
CPT/HCPCS: 71046; 87581; 87632; 87798; 99212; C9803; G0463; U0003; U0005

== ENCOUNTER → 2022-11-12 23:27 | Outpatient (CLI) | payer MEDICAID, SELFPAY ==
[2022-11-12 18:54] LABS: Anion Gap 14.4 mEq/L (5-15); Blood Urea Nitrogen 11 mg/dl (7-17); Calcium 9.2 mg/dl (8.4-10.2); Carbon Dioxide 20 mmol/L (22.0-30.0); Chloride 104 mmol/L (98-107); Chol/HDL Ratio 5.1 (1-3.5); Cholesterol 257 mg/dl (140-200); Estimated Glomerular Filt Rate 72 ml/min (>60); GFR (African American) 87 ML/MIN (>60); Glucose 95 mg/dl (74-100); HDL Cholesterol 50 mg/dl (40-60); Potassium 4.4 mmoL/L (3.5-5.1); Sodium 134 mmol/L (136-145); Triglycerides 171 mg/dl (30-150); VLDL Cholesterol 34 mg/dL (0-40)
[2022-11-12 19:05] LABS: Direct LDL Cholesterol 171.27 mg/dL (100-129)
[2022-11-12 19:12] LABS: 25-OH Vitamin D, Total 31.6 ng/mL (30-100)
[2022-11-12 19:17] LABS: Free T4 (Free Thyroxine) 1.08 ng/dl (0.78-2.19)
[2022-11-12 19:24] LABS: Thyroid Stimulating Hormone 2.34 uIU/mL (0.465-4.68)
== END ==
PROVIDERS: PCP Emergency Medicine; Visit Provider Emergency Medicine
DX: E55.9 Vitamin D deficiency, unspecified (principal); E66.9 Obesity, unspecified; Z68.38 Body mass index [BMI] 38.0-38.9, adult; Z79.899 Other long term (current) drug therapy
CPT/HCPCS: 80048; 80061; 82306; 84439; 84443

== ENCOUNTER → 2023-04-20 23:21 | Outpatient (CLI) | payer MEDICAID, SELFPAY | PROVIDERS: PCP Nurse Practitioner Family; Visit Provider Nurse Practitioner Family | DX: R05.9 Cough, unspecified (principal); J02.9 Acute pharyngitis, unspecified | CPT/HCPCS: 87070 ==

== ENCOUNTER 2023-05-08 12:14 | Emergency (ER) | payer MEDICAID, SELFPAY ==
[2023-05-08 12:20] VITALS: BP 122/86; PULSE 90; RESP 18; TEMP 37.2; O2SAT 97; BMI 37.6
[2023-05-08 12:45] LABS: UTC Strep Screen (Rapid) Negative (Negative)
--- NOTE | 2023-05-08 12:53 | EXP.UTC ---
Discharge Plan Disposition Patient Disposition: Home, Self-Care Condition: Good Prescriptions Prescriptions: No Action fexofenadine 180 mg tablet 180 mg PO DAILY Patient Comments: TAKE 1 TABLET BY MOUTH ONCE DAILY lisinopril 10 mg tablet 10 mg PO DAILY Qty: 30 11RF budesonide-formoterol [Symbicort] 80-4.5 mcg/actuation HFA aerosol inhaler 2 inh inhalation DAILY azelastine 137 mcg (0.1 %) aerosol,spray 1 ml NS BID albuterol sulfate [Ventolin HFA] 90 mcg/actuation HFA aerosol inhaler 2 puff inhalation Q6H PRN (Reason: Shortness Of Breath Or Wheezing) Qty: 1 0RF Elinest 0.3-30 mg-mcg tablet See Rx Instructions .ROUTE .COMPLEX Rx Instructions: Take 1 tablet by mouth once daily clonazepam 0.5 mg tablet 0.5 mg PO DAILY PRN (Reason: as needed) escitalopram oxalate 20 mg tablet See Rx Instructions .ROUTE .COMPLEX Rx Instructions: Take 1 tablet by mouth once daily fluticasone propionate 9.9 ML spray,suspension 1 spray NS DAILY Rx Instructions: administer into each nostril Referrals Follow up/Referrals: Lan Ortiz MD [Primary Care Provider] - See instructions Activity Restrictions/Add. Instructions Additional Instructions/Restrictions: Take 1 tsp of Bromfed as needed every 4-6 hours as needed for cold symptoms. Clinical Impressions Clinical Impression: Acute upper respiratory infection Instructions Patient Instructions: DI for Viral Upper Respiratory Infection -- Adult Discharge ED Provider: Clara Light [facility] General Stated complaint: sore throat trouble swallowing ear pressure Mode of Arrival: Ambulatory Source of Information: Patient Limitations: No Limitations Time Seen by Provider: 05/08/23 12:53 Description of Symptoms (Recalled from Triage Doc. by RN): Sore throat, difficulty swallowing, ear pressure, and bilateral ear pain. HEENT Symptoms (Recalled from RN notes): Yes Resp Symptoms (Recalled from RN notes): No Skin Symptoms (Recalled from RN notes): No MS Symptoms (Recalled from RN notes): No Functional Status (Recalled from RN notes): n/a History of Present Illness Provider Complaint: Pt states that she had a URI about a month ago and took antibiotics and a steroid at that time. She reports that she takes allergy shots and allergy medication daily. She relates that yesterday her throat started hurting along with her ears and she was concerned that she may have strep. Related Data Home Medications Medication Instructions Recorded Confirmed azelastine 137 mcg (0.1 %) nasal 1 ml intranasal BID Asthma 02/16/22 05/08/23 spray aerosol fluticasone propionate 50 1 spray intranasal DAILY Asthma 03/07/22 05/08/23 mcg/actuation nasal spray,suspension fexofenadine 180 mg tablet 180 mg PO DAILY allergies 06/02/22 05/08/23 budesonide-formoterol HFA 80 2 inh inhalation DAILY Asthma 11/12/22 05/08/23 mcg-4.5 mcg/actuation aerosol inhaler (Symbicort) clonazepam 0.5 mg tablet 0.5 mg PO DAILY PRN as needed 05/08/23 05/08/23 escitalopram oxalate 20 mg tablet See Rx Instructions .Route 05/08/23 05/08/23 .COMPLEX mood norgestrel 0.3 mg-ethinyl See Rx Instructions .Route 05/08/23 05/08/23 estradiol 30 mcg tablet (Elinest) .COMPLEX b/c Previous Rx's Medication Instructions Recorded albuterol sulfate 90 mcg/actuation 2 puff inhalation Q6H PRN 05/31/22 aerosol inhaler (Ventolin HFA) Shortness Of Breath Or Wheezing #1 g lisinopril 10 mg tablet 10 mg PO DAILY BLOOD PRESSURE #30 06/02/22 tabs Allergies Allergy/AdvReac Type Severity Reaction Status Date / Time penicillin G Allergy Hives Verified 05/08/23 12:39 Worker's Comp Is this a Worker's Comp case?: No [facility] Disclaimer: The information contained in this section may have been updated after the patient was seen, as this information can be updated by other users. Medical History (Updated 05/08/23 @ 13:06 by Clara Light APRN)
[2023-05-08 13:10] VITALS: BP 122/86; PULSE 90; RESP 18; TEMP 37.2; O2SAT 97
== END 2023-05-08 13:10 | disposition home or self-care (01) ==
PROVIDERS: Emergency Provider Nurse Practitioner Family; PCP Emergency Medicine
DX: J06.9 Acute upper respiratory infection, unspecified (principal); I10 Essential (primary) hypertension; J45.909 Unspecified asthma, uncomplicated; F41.9 Anxiety disorder, unspecified; F32.A Depression, unspecified; B34.9 Viral infection, unspecified
CPT/HCPCS: 87880; 99212; 99213; G0463

== ENCOUNTER → 2023-05-23 13:30 | Outpatient (CLI) | payer MEDICAID, SELFPAY ==
[2023-05-23 12:53] LABS: Chol/HDL Ratio 5.2 (1-3.5); Cholesterol 223 mg/dl (140-200); HDL Cholesterol 43 mg/dl (40-60); Triglycerides 225 mg/dl (30-150); VLDL Cholesterol 45 mg/dL (0-40)
[2023-05-23 13:04] LABS: Direct LDL Cholesterol 138.21 mg/dL (100-129)
[2023-05-23 13:28] LABS: Thyroid Stimulating Hormone 2.79 uIU/mL (0.465-4.68)
== END ==
PROVIDERS: PCP Internal Medicine; Visit Provider Internal Medicine
DX: E78.5 Hyperlipidemia, unspecified (principal)
CPT/HCPCS: 80061; 84443

== ENCOUNTER → 2023-07-13 07:11 | Outpatient (CLI) | payer MEDICAID, SELFPAY ==
[2023-07-13 19:41] LABS: Chol/HDL Ratio 3.8 (1-3.5); Cholesterol 155 mg/dl (140-200); HDL Cholesterol 41 mg/dl (40-60); Triglycerides 163 mg/dl (30-150); VLDL Cholesterol 33 mg/dL (0-40)
[2023-07-13 19:54] LABS: Direct LDL Cholesterol 89.65 mg/dL (100-129)
[2023-07-13 20:09] LABS: Creatinine,Urine Random 234 mg/dL (Not Estab.)
[2023-07-13 20:16] LABS: Microalbumin < 6.000 mg/L (0-16.7)
== END ==
PROVIDERS: PCP Internal Medicine; Visit Provider Internal Medicine
DX: E78.5 Hyperlipidemia, unspecified (principal); E11.9 Type 2 diabetes mellitus without complications
CPT/HCPCS: 80061; 82043; 82570

== ENCOUNTER 2023-10-03 19:32 | Outpatient (CLI) | payer MEDICAID, SELFPAY ==
[2023-10-03 18:49] LABS: Basophils # 0.1 K/mm3 (0-0.2); Basophils % 0.5 % (0.1-2.0); Eosinophils # 0.2 K/mm3 (0.0-0.4); Eosinophils % 1.4 % (0.1-12.0); Hematocrit 45.2 % (37.0-47.0); Hemoglobin 14.9 g/dL (12.2-16.2); Lymphocytes # 3.5 K/mm3 (0.7-4.5); Lymphocytes % 28.7 % (10-50); Mean Corpuscular HGB Conc 32.9 g/dL (31.8-35.4); Mean Corpuscular Hemoglobin 29.3 pg (27.0-31.2); Mean Corpuscular Volume 89.1 fl (81-99); Mean Platelet Volume 8.1 fl (7.4-10.4); Monocytes # 0.4 K/mm3 (0.1-1.0); Monocytes % 3.4 % (1.7-9.3); Neutrophils # 7.9 K/mm3 (1.8-7.8); Neutrophils % 65.8 % (37.0-80.0); Platelet Count 438 K/mm3 (142-424); Red Blood Count 5.07 M/mm3 (4.20-5.40); Red Cell Distribution Width 13.8 % (11.5-17.5)
[2023-10-03 18:55] LABS: Alanine Aminotransferase 20 U/L (12-78); Albumin Level 4.4 g/dl (3.5-5.0); Albumin/Globulin Ratio 1.6 (1.1-1.8); Alkaline Phosphatase 112 U/L (38-126); Aspartate Amino Transferase 27 U/L (14-36); Bilirubin,Total 0.5 mg/dl (0.2-1.3); Blood Urea Nitrogen 14 mg/dl (7-17); Calcium 10.1 mg/dl (8.4-10.2); Carbon Dioxide 26 mmol/L (22.0-30.0); Chloride 103 mmol/L (98-107); Chol/HDL Ratio 4.1 (1-3.5); Cholesterol 170 mg/dl (140-200); Estimated Glomerular Filt Rate 57 ml/min (>60); GFR (African American) 68 ML/MIN (>60); Globulin 2.8 g/dL (1.3-3.2); Glucose 84 mg/dl (74-100); HDL Cholesterol 41 mg/dl (40-60); Sodium 139 mmol/L (136-145); Total Protein,Serum 7.2 g/dl (6.3-8.2); Triglycerides 146 mg/dl (30-150); VLDL Cholesterol 29 mg/dL (0-40)
[2023-10-03 19:06] LABS: Direct LDL Cholesterol 95.05 mg/dL (100-129)
== END 2023-10-03 23:59 ==
LOC: LAB.DROPOF 19:33
PROVIDERS: PCP Internal Medicine; Visit Provider Internal Medicine
DX: E78.5 Hyperlipidemia, unspecified (principal); R53.83 Other fatigue
CPT/HCPCS: 80053; 80061; 85025

== ENCOUNTER 2023-10-07 14:41 | Emergency (ER) | payer MEDICAID, SELFPAY ==
[2023-10-07 15:15] VITALS: BP 116/80; PULSE 96; RESP 18; TEMP 36.8; O2SAT 98; BMI 39.6
--- NOTE | 2023-10-07 15:24 | EXP.UTC ---
Discharge Plan Disposition Patient Disposition: Home, Self-Care Condition: Good Prescriptions Prescriptions: New azithromycin [Zithromax] 250 mg tablet 250 mg PO UD DOSE PK Qty: 6 0RF Rx Instructions: Take two (2) tablets today, then one (1) tablet days #2 thru #5 [id number] [Bromfed DM] 2-30-10 mg/5 mL Syrup 5 ml PO Q6H PRN (Reason: Cough) Qty: 240 0RF No Action fexofenadine 180 mg tablet 180 mg PO DAILY Patient Comments: TAKE 1 TABLET BY MOUTH ONCE DAILY budesonide-formoterol [Symbicort] 80-4.5 mcg/actuation HFA aerosol inhaler 2 inh inhalation DAILY Krill Oil (Huffman 3 and 6) 1,500-165-67.5 mg capsule 1 cap PO DAILY 30 Days Qty: 30 3RF azelastine 137 mcg (0.1 %) aerosol,spray 1 ml NS BID cholecalciferol (vitamin D3) 125 mcg (5,000 unit) capsule 125 mcg PO DAILY atorvastatin 10 mg tablet See Rx Instructions .ROUTE .COMPLEX Qty: 90 0RF Dose Instruction: Take 1 tablet by mouth once daily Rx Instructions: Take 1 tablet by mouth once daily lisinopril 10 mg tablet See Rx Instructions .ROUTE .COMPLEX Qty: 30 5RF Dose Instruction: Take 1 tablet by mouth once daily for blood pressure Rx Instructions: Take 1 tablet by mouth once daily for blood pressure escitalopram oxalate 20 mg tablet See Rx Instructions .ROUTE .COMPLEX Qty: 30 2RF Dose Instruction: Take 1 tablet by mouth once daily Rx Instructions: Take 1 tablet by mouth once daily albuterol sulfate [Ventolin HFA] 90 mcg/actuation HFA aerosol inhaler 2 puff inhalation Q6H PRN (Reason: Shortness Of Breath Or Wheezing) Qty: 1 0RF Elinest 0.3-30 mg-mcg tablet See Rx Instructions .ROUTE .COMPLEX Rx Instructions: Take 1 tablet by mouth once daily clonazepam 0.5 mg tablet 0.5 mg PO DAILY PRN (Reason: as needed) fluticasone propionate 9.9 ML spray,suspension 1 spray NS DAILY Rx Instructions: administer into each nostril Referrals Follow up/Referrals: Don Freedman DO [Primary Care Provider] - See instructions Activity Restrictions/Add. Instructions Additional Instructions/Restrictions: Drink plenty of fluids. Take tylenol or ibuprofen for pain or fever. Take the medications as directed. Follow up with your regular doctor. GO TO THE ER FOR ANY WORSENING SYMPTOMS Clinical Impressions Clinical Impression: Pharyngitis Instructions Patient Instructions: Sore Throat, DI for Pharyngitis/Tonsillopharyngitis -- Adult Discharge ED Provider: Hair Shafer [facility] General Stated complaint: headache, sore throat, cough, body aches Time Seen by Provider: 10/07/23 15:24 History of Present Illness Provider Complaint: She states that she has had headache, sore throat, cough, and body aches for the past 2 days. Related Data Home Medications Medication Instructions Recorded Confirmed azelastine 137 mcg (0.1 %) nasal 1 ml intranasal BID Asthma 02/16/22 10/03/23 spray aerosol fluticasone propionate 50 1 spray intranasal DAILY Asthma 03/07/22 10/03/23 mcg/actuation nasal spray,suspension fexofenadine 180 mg tablet 180 mg PO DAILY allergies 06/02/22 10/03/23 budesonide-formoterol HFA 80 2 inh inhalation DAILY Asthma 11/12/22 10/03/23 mcg-4.5 mcg/actuation aerosol inhaler (Symbicort) clonazepam 0.5 mg tablet 0.5 mg PO DAILY PRN as needed 05/08/23 10/03/23 norgestrel 0.3 mg-ethinyl See Rx Instructions .Route 05/08/23 10/03/23 estradiol 30 mcg tablet (Elinest) .COMPLEX b/c cholecalciferol (vitamin D3) 125 125 mcg PO DAILY 10/03/23 10/03/23 mcg (5,000 unit) capsule Previous Rx's Medication Instructions Recorded albuterol sulfate 90 mcg/actuation 2 puff inhalation Q6H PRN 05/31/22 aerosol inhaler (Ventolin HFA) Shortness Of Breath Or Wheezing #1 g krill 1 cap PO DAILY 30 days #30 caps 06/01/23 [id number]-[id number]-astax 1,500 mg-165 mg-67.5 mg capsule (Krill Oil (Huffman 3 and 6)) atorvastatin 10 mg tablet See Rx Instructions .Route 06/21/23 .COMPLEX #90 tabs lisinopril 10 mg tablet See Rx Instructions .Route 08/10/23 .COMPLEX #30 tabs escitalopram oxalate 20 mg tablet See Rx Instructions .Route 08/23/23 .COMPLEX #30 tabs azithromycin 250 mg tablet 250 mg PO UD DOSE PK #6 tabs 10/07/23 (Zithromax) hkppjgsrqjexfsj-vigzrshctljtxzt-ND 5 ml PO Q6H PRN Cough #240 mL 10/07/23 2 mg-30 mg-10 mg/5 mL oral syrup (Bromfed DM) Allergies Allergy/AdvReac Type Severity Reaction Status Date / Time penicillin G Allergy Hives Verified 10/03/23 10:59 [facility] Disclaimer: The information contained in this section may have been updated after the patient was seen, as this information can be updated by other users. Medical History (Updated 10/07/23 @ 15:36 by Hair Shafer APRN) Acute bronchitis Acute bronchitis Anxiety Asthma Bilateral tinnitus Chest pain Depression Fatigue Fracture Hypertension Migraine Surgical History History of wisdom tooth extraction Family History Other Diabetes Heart attack Hypertension Thyroid disorder Social History Smoking Status: Never smoker alcohol intake: current substance use type: denies use current occupational status: unemployed Travel in the last 8 weeks: None household members: spouse housing: house ROS Obtained: Yes All systems reviewed & no additional complaints except as documented Constitutional Constitutional: Reports chills and Reports fever(s) Eyes Eyes: Denies eye discharge ENT Ears, Nose, Mouth, and Throat: Reports as per HPI Cardiovascular Cardiovascular: Denies chest pain Respiratory Respiratory: Denies chest congestion and Reports cough Gastrointestinal Gastrointestingal: Reports nausea; Denies abdominal pain, constipation, cramping, diarrhea or vomiting Musculoskeletal Musculoskeletal: Denies arthralgias Integumentary/Breasts Skin/Breast: Denies rash Neurologic Neurologic: Denies paresthesias Physical Exam General General appearance: alert and in no apparent distress Eye Eye exam: Present normal appearance, PERRL and EOMI ENT ENT exam: Present mucous membranes moist and normal external ear exam Expanded ENT Exam External ear exam: Present normal external inspection TM/Canal exam: Bilateral TM: erythema and bulging Nose exam: Absent sinus tenderness Nasal speculum exam: Bilateral: normal Mouth exam: Present normal external inspection; Absent drooling Teeth exam: Present normal inspection Throat exam: Present tonsillar erythema and tonsillomegaly Neck Neck exam: Present normal inspection, full ROM and trachea midline; Absent tenderness, lymphadenopathy or thyromegaly Chest Chest inspection: Present normal inspection and symmetric chest wall rise; Absent tenderness or rash Respiratory Respiratory exam: Present normal lung sounds bilaterally; Absent respiratory distress, wheezes, stridor or accessory muscle use Cardiovascular Cardiovascular exam: Present regular rate, normal rhythm and normal heart sounds Abdominal Exam Abdominal exam: Present soft; Absent distention, tenderness, guarding, rebound or rigidity Extremities Exam Extremities exam: Present normal inspection, full ROM and normal capillary refill; Absent tenderness or calf tenderness Back Exam Back exam: Present normal inspection and full ROM; Absent tenderness Neurological Exam Neurological exam: Present alert and oriented X3 Psychiatric Psychiatric exam: Present normal affect and normal mood Skin Skin exam: Present warm, dry, intact and normal color Lymphatic Lymphatic Findings: no adenopathy Medical Decision Making Medical Records Medical records reviewed: No I reviewed the patient's medical records. [place] Inquiry Pt receiving controlled substance: No Lab Data Lab results reviewed: Yes I reviewed the patient's lab results.
[2023-10-07 15:34] LABS: UTC Strep Screen (Rapid) Negative (Negative)
[2023-10-07 15:37] VITALS: BP 116/80; PULSE 96; RESP 18; TEMP 36.8; O2SAT 98
== END 2023-10-07 15:43 | disposition home or self-care (01) ==
PROVIDERS: Emergency Provider Nurse Practitioner Family; PCP Internal Medicine
DX: J02.9 Acute pharyngitis, unspecified (principal); R51.9 Headache, unspecified; R50.9 Fever, unspecified; R05.9 Cough, unspecified; I10 Essential (primary) hypertension
CPT/HCPCS: 87880; 99212; 99214; G0463

== ENCOUNTER 2023-12-27 12:34 | Outpatient (CLI) | payer MEDICAID, SELFPAY ==
[2023-12-27 13:08] LABS: Basophils # 0.1 K/mm3 (0-0.2); Basophils % 0.7 % (0.1-2.0); Eosinophils # 0.2 K/mm3 (0.0-0.4); Eosinophils % 1.5 % (0.1-12.0); Hematocrit 45.1 % (37.0-47.0); Hemoglobin 14.4 g/dL (12.2-16.2); Lymphocytes # 3.7 K/mm3 (0.7-4.5); Lymphocytes % 27.1 % (10-50); Mean Corpuscular HGB Conc 31.9 g/dL (31.8-35.4); Mean Corpuscular Hemoglobin 28.8 pg (27.0-31.2); Mean Corpuscular Volume 90.5 fl (81-99); Mean Platelet Volume 7.2 fl (7.4-10.4); Monocytes # 0.5 K/mm3 (0.1-1.0); Monocytes % 3.5 % (1.7-9.3); Neutrophils # 9.1 K/mm3 (1.8-7.8); Neutrophils % 67.2 % (37.0-80.0); Platelet Count 459 K/mm3 (142-424); Red Blood Count 4.98 M/mm3 (4.20-5.40); Red Cell Distribution Width 14.1 % (11.5-17.5); White Blood Count 13.6 K/mm3 (4.8-10.8)
[2023-12-28 12:07] LABS: Immunoglobulin A, Qn 95 mg/dL (87-352); Immunoglobulin G, Qn 1035 mg/dL (586-1602); Immunoglobulin M, Qn 45 mg/dL (26-217)
[2024-01-01 07:52] LABS: Miscellaneous Test SCANNED IMAGE
== END 2023-12-27 23:59 | disposition home or self-care (01) ==
LOC: LAB 12:35
PROVIDERS: PCP Internal Medicine; Visit Provider Allergy & Immunology
DX: J32.8 Other chronic sinusitis (principal)
CPT/HCPCS: 36415; 82784; 85025

== ENCOUNTER 2024-01-31 18:00 | Outpatient (CLI) | payer MEDICAID, SELFPAY ==
[2024-01-31 19:29] LABS: Basophils # 0.1 K/mm3 (0-0.2); Basophils % 0.6 % (0.1-2.0); Eosinophils # 0.2 K/mm3 (0.0-0.4); Eosinophils % 1.2 % (0.1-12.0); Hematocrit 42.9 % (37.0-47.0); Hemoglobin 13.4 g/dL (12.2-16.2); Lymphocytes # 3.7 K/mm3 (0.7-4.5); Lymphocytes % 29.6 % (10-50); Mean Corpuscular HGB Conc 31.3 g/dL (31.8-35.4); Mean Corpuscular Hemoglobin 28.8 pg (27.0-31.2); Mean Corpuscular Volume 91.8 fl (81-99); Mean Platelet Volume 8.8 fl (7.4-10.4); Monocytes # 0.5 K/mm3 (0.1-1.0); Monocytes % 4.3 % (1.7-9.3); Neutrophils % 64.3 % (37.0-80.0); Platelet Count 437 K/mm3 (142-424); Red Blood Count 4.67 M/mm3 (4.20-5.40); White Blood Count 12.4 K/mm3 (4.8-10.8)
[2024-01-31 19:34] LABS: Chol/HDL Ratio 3.4 (1-3.5); Cholesterol 144 mg/dl (140-200); HDL Cholesterol 42 mg/dl (40-60); Triglycerides 125 mg/dl (30-150); VLDL Cholesterol 25 mg/dL (0-40)
[2024-01-31 19:45] LABS: Direct LDL Cholesterol 83.41 mg/dL (100-129)
[2024-01-31 19:50] LABS: 25-OH Vitamin D, Total 71.1 ng/mL (30-100)
[2024-02-02 18:49] LABS: Peripheral Smear Review Scanned Result
== END 2024-01-31 23:59 | disposition home or self-care (01) ==
LOC: LAB.DROPOF 02-01 10:08
PROVIDERS: PCP Internal Medicine; Visit Provider Internal Medicine
DX: D72.829 Elevated white blood cell count, unspecified (principal); R53.83 Other fatigue; E55.9 Vitamin D deficiency, unspecified; Z68.39 Body mass index [BMI] 39.0-39.9, adult; E66.9 Obesity, unspecified
CPT/HCPCS: 80061; 82306; 85025

== ENCOUNTER 2024-05-28 11:08 | Outpatient (CLI) | payer MEDICAID, SELFPAY ==
[2024-05-28 18:44] LABS: Chol/HDL Ratio 4.3 (1-3.5); Cholesterol 193 mg/dl (140-200); HDL Cholesterol 45 mg/dl (40-60); Triglycerides 192 mg/dl (30-150); VLDL Cholesterol 38 mg/dL (0-40)
[2024-05-28 18:55] LABS: Direct LDL Cholesterol 106.98 mg/dL (100-129)
== END 2024-05-28 23:59 | disposition home or self-care (01) ==
LOC: LAB.DROPOF 05-29 11:08
PROVIDERS: PCP Internal Medicine; Visit Provider Internal Medicine
DX: E78.00 Pure hypercholesterolemia, unspecified (principal)
CPT/HCPCS: 80061

== ENCOUNTER 2025-01-08 11:10 | Outpatient (CLI) | payer MEDICAID, SELFPAY ==
[2025-01-08 19:10] LABS: Alanine Aminotransferase 16 U/L (12-78); Albumin Level 4.1 g/dl (3.5-5.0); Albumin/Globulin Ratio 1.6 (1.1-1.8); Alkaline Phosphatase 101 U/L (38-126); Anion Gap 11.4 mEq/L (5-15); Aspartate Amino Transferase 21 U/L (14-36); Bilirubin,Total 0.5 mg/dl (0.2-1.3); Blood Urea Nitrogen 11 mg/dl (7-17); Calcium 9.5 mg/dl (8.4-10.2); Carbon Dioxide 24 mmol/L (22.0-30.0); Chloride 107 mmol/L (98-107); Chol/HDL Ratio 3.5 (1-3.5); Cholesterol 129 mg/dl (140-200); Estimated Glomerular Filt Rate 62 ml/min (>60); GFR (African American) 75 ML/MIN (>60); Globulin 2.6 g/dL (1.3-3.2); Glucose 99 mg/dl (74-100); HDL Cholesterol 37 mg/dl (40-60); Potassium 4.4 mmoL/L (3.5-5.1); Sodium 138 mmol/L (136-145); Total Protein,Serum 6.7 g/dl (6.3-8.2); Triglycerides 163 mg/dl (30-150); VLDL Cholesterol 33 mg/dL (0-40)
[2025-01-08 19:23] LABS: Direct LDL Cholesterol 78.61 mg/dL (100-129)
== END 2025-01-08 23:59 | disposition home or self-care (01) ==
LOC: LAB.DROPOF 01-09 10:41
PROVIDERS: PCP Family Medicine; Visit Provider Family Medicine
DX: E78.00 Pure hypercholesterolemia, unspecified (principal); N39.0 Urinary tract infection, site not specified
CPT/HCPCS: 80053; 80061; 87086

== ENCOUNTER 2025-05-06 13:32 | Outpatient (CLI) | payer MEDICAID, SELFPAY ==
--- NOTE | 2025-05-06 13:35 | XR_ITS ---
FINAL REPORT CLINICAL HISTORY: Chronic pain in both hands FINDINGS: LEFT HAND Two views were obtained. There is no fracture or dislocation. There is no evidence of erosion. The bones are well-mineralized. The joint spaces appear normal. No soft tissue abnormality is identified. IMPRESSION: No acute process. Reviewed, Interpreted and Dictated by Kimberly Jorgensen MD Transcribed by Kathy Rao Authenticated and [facility]
--- NOTE | 2025-05-06 13:35 | XR_ITS ---
FINAL REPORT CLINICAL HISTORY: Chronic pain in both hands FINDINGS: RIGHT HAND Two views were obtained. There is no fracture or dislocation. There is no evidence of erosion. The bones are well-mineralized. The joint spaces appear normal. No soft tissue abnormality is identified. IMPRESSION: No acute process. Reviewed, Interpreted and Dictated by Kimberly Jorgensen MD Transcribed by Kathy Rao Authenticated and . [facility]
== END 2025-05-06 23:59 | disposition home or self-care (01) ==
LOC: RAD 13:33
PROVIDERS: PCP Family Medicine; Visit Provider Family Medicine
DX: M79.642 Pain in left hand (principal); M79.641 Pain in right hand; G89.29 Other chronic pain
CPT/HCPCS: 73120

== ENCOUNTER 2025-07-18 12:36 | Outpatient (CLI) | payer MEDICAID, SELFPAY ==
--- NOTE | 2025-07-18 13:00 | MR_ITS ---
FINAL REPORT CLINICAL HISTORY: migraines, chronic, more than 20 yrs, originates in orbits COMPARISON: None FINDINGS: Multi planar MR imaging was obtained through the brain without contrast. The midline structures appear intact. There is no evidence of Chiari malformation. On T2 and flair axial images the brain parenchyma is homogeneous. On diffusion-weighted images there is no evidence of restricted diffusion. The visualized paranasal sinuses demonstrate normal signal voids. The seventh and eighth nerve root complexes are intact. IMPRESSION: Essentially unremarkable nonenhanced brain MRI. Reviewed, Interpreted and Dictated by Donald Menjivar MD Transcribed by Elizabeth White Authenticated and [facility]
== END 2025-07-18 23:59 | disposition home or self-care (01) ==
LOC: RAD 12:36
PROVIDERS: PCP Family Medicine; Visit Provider Specialist
DX: G43.909 Migraine, unspecified, not intractable, without status migrainosus (principal)
CPT/HCPCS: 70551